=== PATIENT | male | born 1995 | race Caucasian/White ===

== ENCOUNTER 2020-11-25 16:33 | Emergency (ER) | payer OTHER ==
[~2020-11-25] VITALS: Ht 177.8 cm; Wt 78.3 kg
[2020-11-25 16:34] VITALS: BP 123/70
--- NOTE | 2020-11-25 20:44 | REPVR ---
PROCEDURE INFORMATION: Exam: XR Chest Exam date and time: 11/25/2020 8:22 PM Age: 25 years old Clinical indication: Cough TECHNIQUE: Imaging protocol: XR of the chest. Views: 1 view. COMPARISON: No relevant prior studies available. FINDINGS: Lungs: Unremarkable. No consolidation. Pleural spaces: Unremarkable. No pleural effusion. No pneumothorax. Heart/Mediastinum: Unremarkable. No cardiomegaly. Bones/joints: Unremarkable. IMPRESSION: No acute findings. Electronically signed by: Hernando Rucker On 11/25/2020 20:43:45 PM
[2020-11-25 21:25] LABS: RSV AMPLIFICATION NEGATIVE (NEGATIVE)
== END 2020-11-25 22:38 | disposition home or self-care (01) ==
LOC: M ED 16:33
DX: U07.1 COVID-19 (principal); R05 Cough

== ENCOUNTER 2021-07-18 08:41 | Emergency (ER) | payer OTHER ==
[~2021-07-18] VITALS: Ht 177.8 cm; Wt 88.3 kg
[2021-07-18] MEDS ORDERED: ZOLO50TA PO (08:48)
[2021-07-18] MEDS ORDERED: ACET1TAB37 PO (08:48)
[2021-07-18] MEDS ORDERED: IBUP80TA PO (13:19)
[2021-07-18 13:49] VITALS: BP 122/69
== END 2021-07-18 13:59 | disposition home or self-care (01) ==
LOC: M ED 08:41
DX: S92.534A Nondisplaced fracture of distal phalanx of right lesser toe(s), initial encounter for closed fracture (principal); S93.402A Sprain of unspecified ligament of left ankle, initial encounter; X50.1XXA Overexertion from prolonged static or awkward postures, initial encounter; Y92.89 Other specified places as the place of occurrence of the external cause; Y93.9 Activity, unspecified; Y99.9 Unspecified external cause status; F41.9 Anxiety disorder, unspecified; F32.9 Major depressive disorder, single episode, unspecified

== ENCOUNTER 2021-09-25 03:51 | Inpatient (IN) | payer OTHER ==
[~2021-09-25] VITALS: Ht 177.8 cm; Wt 84.8 kg
[~2021-09-25 03:51] MED LIST: ACET1TAB37 PO; IBUP80TA PO; ZOLO50TA PO
[2021-09-25] MEDS ORDERED: HALOPERIDOL 5MG/ML VIAL (J1630 PER 1) IM STA (04:22)
[2021-09-25] MEDS ORDERED: LORazepam 2 MG/ML VIAL IM STA (04:22)
[2021-09-25] MEDS ORDERED: diphenhydrAMINE 50MG/ML VIAL (J1200) IM ONE (04:25)
[2021-09-25 04:51] LABS: AMPHETAMINES LEVEL URINE NEGATIVE (NEGATIVE); BARBITURATES URINE NEGATIVE (NEGATIVE); BENZODIAZEPINES URINE NEGATIVE (NEGATIVE); CANNABINOIDS URINE NEGATIVE (NEGATIVE); COCAINE METABOLITE URINE NEGATIVE (NEGATIVE); METHADONE URINE NEGATIVE (NEGATIVE); OPIATES URINE NEGATIVE (NEGATIVE); PHENCYCLIDINE URINE NEGATIVE (NEGATIVE)
[2021-09-25 04:54] LABS: HEMATOCRIT 47.9 % (42.0-52.0); HEMOGLOBIN 16.6 g/dl (13.5-17.5); MEAN CORPUSCULAR HEMOGLOBIN 30.1 pg (27.0-33.0); MEAN CORPUSCULAR HGB CONC 34.7 g/dl (32.0-36.5); MEAN CORPUSCULAR VOLUME 86.9 fl (80.0-96.0); PLATELET COUNT, AUTOMATED 291 10^3/uL (150-450); RED BLOOD COUNT 5.51 10^6/uL (4.30-6.10); WHITE BLOOD COUNT 6.6 10^3/uL (4.0-10.0)
[2021-09-25 05:27] LABS: ALBUMIN 4.5 GM/DL (3.2-5.2); ALT/SGPT 14 U/L (12-78); BILIRUBIN,DIRECT 0.1 MG/DL (0.0-0.2); BILIRUBIN,TOTAL 0.4 MG/DL (0.2-1.0); BLOOD UREA NITROGEN 9 MG/DL (7-18); CALCIUM LEVEL 9.3 MG/DL (8.5-10.1); CARBON DIOXIDE LEVEL 26 MEQ/L (21-32); CHLORIDE LEVEL 112 MEQ/L (98-107); ETHYL ALCOHOL (ETHANOL) 0.243 % (0.000-0.010); GLOMERULAR FILTRATION RATE > 60.0 (>60); GLUCOSE, FASTING 96 MG/DL (70-100); POTASSIUM SERUM 4.1 MEQ/L (3.5-5.1); SALICYLATE LEVEL < 1.7 MG/DL (5.0-30.0); SODIUM LEVEL 145 MEQ/L (136-145); TOTAL PROTEIN 7.9 GM/DL (6.4-8.2)
[2021-09-25 05:29] LABS: RSV AMPLIFICATION NEGATIVE (NEGATIVE)
[2021-09-25] MEDS: MULTIVITAMINS/MINERALS THERAP 1 TAB PO SCH (09:00)
[2021-09-25] MEDS: SERTRALINE HCL 50 MG TAB PO SCH (09:00)
[2021-09-25] MEDS: NICOTINE 21MG/24HR 1 EA TRANSDERMAL TD SCH (09:00)
[2021-09-25] MEDS: FOLIC ACID 1 MG TAB PO SCH (09:00)
[2021-09-25] MEDS ORDERED: diphenhydrAMINE 25MG CAP PO PRN (12:35)
[2021-09-25] MEDS ORDERED: MOM 30ML SUSPENSION UDC PO PRN (12:35)
[2021-09-25] MEDS ORDERED: IBUPROFEN 400MG TAB PO PRN (12:35)
[2021-09-25] MEDS ORDERED: LORazepam 2 MG TAB PO PRN (12:35)
[2021-09-25] MEDS ORDERED: MAALOX 30 ML SUSP *UDC PO PRN (12:35)
[2021-09-25] MEDS ORDERED: HOME MED LIST COMPLETE! XX SCH (13:40)
[2021-09-25] MEDS: THIAMINE 100 MG TAB PO SCH ×2 (14:00→21:47)
[2021-09-25 21:30] VITALS: BP 159/76
[2021-09-25 21:38] VITALS: BP 159/76
[2021-09-25] MEDS: traZODone 50 MG TAB PO PRN (22:40)
[2021-09-26 06:15] VITALS: BP 123/62
[2021-09-26 06:23] VITALS: BP 123/62
[2021-09-26] MEDS: THIAMINE 100 MG TAB PO SCH ×2 (08:28→20:58)
[2021-09-26] MEDS: FOLIC ACID 1 MG TAB PO SCH (08:28)
[2021-09-26] MEDS: MULTIVITAMINS/MINERALS THERAP 1 TAB PO SCH (08:28)
[2021-09-26] MEDS: SERTRALINE HCL 50 MG TAB PO SCH (08:28)
[2021-09-26] MEDS: NICOTINE 21MG/24HR 1 EA TRANSDERMAL TD SCH ×2 (08:30→09:00)
[2021-09-26 13:05] VITALS: BP 121/64
[2021-09-26 16:30] VITALS: BP 139/77
[2021-09-26] MEDS: traZODone 50 MG TAB PO PRN (20:58)
[2021-09-27 06:00] VITALS: BP 127/70
[2021-09-27 06:44] VITALS: BP 127/70
[2021-09-27] MEDS: SERTRALINE HCL 50 MG TAB PO SCH (08:28)
[2021-09-27] MEDS: FOLIC ACID 1 MG TAB PO SCH (08:28)
[2021-09-27] MEDS: MULTIVITAMINS/MINERALS THERAP 1 TAB PO SCH (08:28)
[2021-09-27] MEDS: NICOTINE 21MG/24HR 1 EA TRANSDERMAL TD SCH (09:00)
== END 2021-09-27 12:44 | disposition home or self-care (01) | DRG 881 ==
LOC: M ED 03:51 → M ED INP 12:33 → M PSY 21:44
PROVIDERS: ADMIT Psychiatry & Neurology Psychiatry; ATTEND Psychiatry & Neurology Psychiatry
DX: F32.A Depression, unspecified (principal); R45.851 Suicidal ideations; F41.1 Generalized anxiety disorder; F43.10 Post-traumatic stress disorder, unspecified; F17.200 Nicotine dependence, unspecified, uncomplicated; R45.850 Homicidal ideations

== ENCOUNTER 2021-11-22 14:09 | Emergency (ER) | payer OTHER ==
[~2021-11-22] VITALS: Ht 177.8 cm; Wt 86.0 kg
[2021-11-22 14:09] VITALS: BP 129/67
[2021-11-22 18:26] LABS: HEPATITIS B SURFACE ANTIBODY POSITIVE (POSITIVE); HEPATITIS B SURFACE ANTIGEN NEGATIVE (NEGATIVE); HIV 1&2 SCREEN CENTAUR NEGATIVE (NEGATIVE)
[2021-11-22 19:14] LABS: GC DNA AMPLIFICATION NEGATIVE (NEGATIVE)
== END 2021-11-22 16:51 | disposition home or self-care (01) ==
LOC: M ED 14:09
DX: N48.89 Other specified disorders of penis (principal); F44.9 Dissociative and conversion disorder, unspecified

== ENCOUNTER → 2022-06-19 | Outpatient (CLI) | payer OTHER | LOC: M PLALAB 13:44 | PROVIDERS: ATTEND Nurse Practitioner Family | DX: R06.2 Wheezing (principal); M54.2 Cervicalgia; M54.50 Low back pain, unspecified; M25.521 Pain in right elbow; M25.572 Pain in left ankle and joints of left foot; M25.569 Pain in unspecified knee ==